=== PATIENT | male | born 1970 | race Caucasian/White ===

== ENCOUNTER 2019-08-09 13:48 | Emergency (ER) | payer OTHER ==
[2019-08-09 14:22] LABS: BASOPHILS % (AUTO) 1.6 % (0.0-5.0); EOSINOPHILS % (AUTO) 0.5 % (0.0-8.0); HEMATOCRIT 40.7 % (42-54); LYMPHOCYTES % (AUTO) 25.3 % (21.0-51.0); MEAN CORPUSCULAR HEMOGLOBIN 29.8 pg (27.0-33.0); MEAN CORPUSCULAR HGB CONC 34.2 g/dL (32.0-36.0); MEAN CORPUSCULAR VOLUME 87.2 fL (79-99); MONOCYTES % (AUTO) 8.7 % (3.0-13.0); NEUTROPHILS % (AUTO) 63.7 % (40.0-77.0); PLATELET COUNT (AUTO) 344 K/uL (130-400); RED BLOOD CELL COUNT(AUTO) 4.67 MIL/uL (4.50-6.20); RED CELL DISTRIBUTION WIDTH 11.5 % (11.0-15.5); WHITE BLOOD COUNT (AUTO) 5.7 K/uL (4.8-10.8)
[2019-08-09] MEDS ORDERED: METHYLPREDNISOLONE SOD SUCC 40MG/ML 1ML ONE (14:33)
[2019-08-09] MEDS ORDERED: KETOROLAC TROMETHAMINE 30MG/ML ONE (14:34)
[2019-08-09 14:43] LABS: ALBUMIN 4.4 g/dL (3.5-5.0); BILIRUBIN,TOTAL 0.6 mg/dL (0.2-1.0); CREATININE 1.1 mg/dL (0.5-1.5)
[2019-08-09 14:45] LABS: POTASSIUM 2.9 mmol/L (3.5-5.1)
[2019-08-09 14:51] LABS: B-TYPE NATRIURETIC PEPTIDE < 5 pg/mL (0-100)
[2019-08-09] MEDS ORDERED: POTASSIUM BICARB/CIT AC 25 MEQ TABLET.EFF ONE (14:51)
[2019-08-09] MEDS ORDERED: MAGNESIUM 2GM PREMIX 50ML 50 ML IV ONE (14:51)
== END 2019-08-09 16:18 | disposition home or self-care (01) ==
LOC: EDH 13:48
DX: E87.6 Hypokalemia (principal); J01.90 Acute sinusitis, unspecified; B34.9 Viral infection, unspecified; Z20.828 Contact with and (suspected) exposure to other viral communicable diseases; J45.909 Unspecified asthma, uncomplicated; Z88.0 Allergy status to penicillin; Z87.891 Personal history of nicotine dependence
CPT/HCPCS: 36415; 71045; 80053; 82550; 83880; 84484; 85025; 87633; 87635; 87804 ×2; 93005; 96365; 96375; 99285; J1885; J2920; J3475

== ENCOUNTER → 2021-09-03 | Outpatient (CLI) | payer OTHER | END | disposition home or self-care (01) | LOC: LAB 11:36 | PROVIDERS: ATTEND Internal Medicine Cardiovascular Disease | DX: Z20.822 Contact with and (suspected) exposure to COVID-19 (principal) | CPT/HCPCS: 87635; C9803 ==

== ENCOUNTER 2023-07-20 18:51 | Emergency (ER) | payer OTHER ==
[~2023-07-20] VITALS: Ht 177.8 cm; Wt 86.2 kg
[2023-07-20 19:27] LABS: BASOPHILS # (AUTO) 0.09 K/uL (0.00-0.20); BASOPHILS % (AUTO) 1.7 % (0.0-5.0); EOSINOPHILS # (AUTO) 0.15 K/uL (0.00-0.70); EOSINOPHILS % (AUTO) 2.9 % (0.0-8.0); HEMATOCRIT 35.7 % (42-54); IMMATURE GRANULOCYTE ABSOLUTE 0.01 K/uL (0-1); LYMPHOCYTES # (AUTO) 1.8 K/uL (1.0-4.8); LYMPHOCYTES % (AUTO) 34.5 % (21.0-51.0); MEAN CORPUSCULAR HEMOGLOBIN 29.1 pg (27.0-33.0); MEAN CORPUSCULAR HGB CONC 32.8 g/dL (32.0-36.0); MEAN CORPUSCULAR VOLUME 88.8 fL (79-99); MONOCYTES # (AUTO) 0.5 K/uL (0.1-1.0); MONOCYTES % (AUTO) 8.7 % (3.0-13.0); NEUTROPHILS # (AUTO) 2.7 K/uL (1.8-7.7); PLATELET COUNT (AUTO) 457 K/uL (130-400); RED BLOOD CELL COUNT(AUTO) 4.02 MIL/uL (4.50-6.20); RED CELL DISTRIBUTION WIDTH 13.2 % (11.0-15.5); WHITE BLOOD COUNT (AUTO) 5.2 K/uL (4.8-10.8)
[2023-07-20 21:12] LABS: BILIRUBIN,URINE NEGATIVE (NEGATIVE); COLOR,URINE LIGHT-YELLOW (YELLOW); GLUCOSE, URINE (UA) NEGATIVE (NEGATIVE); KETONES,URINE NEGATIVE (NEGATIVE); LEUKOCYTE ESTERASE ,URINE NEGATIVE Leu/uL (NEGATIVE); NITRATE,URINE NEGATIVE (NEGATIVE); OCCULT BLOOD,URINE NEGATIVE (NEGATIVE); PROTEIN,URINE NEGATIVE (NEGATIVE); UROBILINOGEN,URINE 0.2 mg/dL (0.2-1.0)
[2023-07-20 21:13] LABS: ADD UA MICROSCOPIC NO; APPEARANCE,URINE CLEAR (CLEAR)
[2023-07-21 02:40] VITALS: BP 117/79; PULSE 77; RESP 18; O2SAT 97
== END 2023-07-21 02:40 | disposition home or self-care (01) ==
LOC: EDH 18:51
DX: G81.02 Flaccid hemiplegia affecting left dominant side (principal); I10 Essential (primary) hypertension; J45.909 Unspecified asthma, uncomplicated; Z04.3 Encounter for examination and observation following other accident; Z87.820 Personal history of traumatic brain injury; Z88.0 Allergy status to penicillin
CPT/HCPCS: 36415; 70450; 71045; 72125; 74176; 81003; 85025; 93005

== ENCOUNTER 2023-07-27 14:48 | Emergency (ER) | payer OTHER ==
[~2023-07-27] VITALS: Ht 177.8 cm; Wt 81.6 kg
[2023-07-27 15:07] VITALS: RESP 18
[2023-07-27 17:47] VITALS: BP 147/76; PULSE 86; O2SAT 96
== END 2023-07-27 18:35 | disposition home or self-care (01) ==
LOC: EDH 14:48
DX: S01.91XA Laceration without foreign body of unspecified part of head, initial encounter (principal); J45.909 Unspecified asthma, uncomplicated; I10 Essential (primary) hypertension; Z88.0 Allergy status to penicillin; W07.XXXA Fall from chair, initial encounter; Y93.89 Activity, other specified; Y92.89 Other specified places as the place of occurrence of the external cause; Y99.8 Other external cause status
CPT/HCPCS: 70450; 72125